=== PATIENT | female | born 1980 ===

== ENCOUNTER → 2019-07-09 | Day surgery (SDC) | payer OTHER ==
[~2019-07-09] MED LIST: ESMOLOL HCL 100MG/10ML 10 MG/ML VIAL ONE; FENTANYL CITRATE/PF 100MCG/2 ML INJ ONE; LIDOCAINE HCL 2% LOCAL INJ 5 ML SDV VIAL INJ ONE; MIDAZOLAM HCL 2 MG/2 ML VIAL ONE; PANTOPRAZOLE 40 MG 10ML VIAL ONE; PROPOFOL IV EMULSION 10 MG/ML 50 ML VIAL ONE
--- OUTSIDE RECORDS SUMMARY | 2019-07-09 12:13 | XMS REPORT | CCD ---
Author Author Auto Generated Organization [facility] Address Unknown Phone Unavailable Care Team Providers Care Reception Specialist Name Role Phone Nathalia Elias CP Allergies, Adverse Reactions, Alerts Substance Reaction Status NKDA Active Problem List Condition Effective Dates Status Vaginal delivery Active Medications Medication Instructions Start Date End Date Status Tylenol 1,000 mg, PO, PRN, Substitution 02/05/2012 02/08/2012 Discontinued Allowed, CAP labetalol 200 mg, 1 tab, Route: PO, Drug 02/07/2012 02/08/2012 Discontinued form: TAB, Q12H, Start date: 02/07/12 9:00:00, Stop date: 03/07/12 21:00:00 Lasix 20 mg oral 20 mg, 1 tab, PO, Daily, 3 tab, 02/08/2012 Ordered tablet Substitution Allowed labetalol 20 mg, 4 mL, Route: IVP, Drug form: 02/06/2012 02/08/2012 Discontinued INJ, Q2H, PRN Other -See Comment, Start date: 02/06/12 7:24:00, Duration: 30 day, Stop date: 03/07/12 7:23:00 mineral oil 30 mL, Route: PERCUT, Drug Form: 02/06/2012 02/06/2012 Completed LIQ, ONCE, Start date: 02/06/12 9:06:00, Stop date: 02/06/12 9:06:00 labetalol 200 mg 400 mg, 2 tab, PO, Q12H, 28 tab, 02/08/2012 02/08/2012 Discontinued oral tablet Substitution Allowed, TAB ibuprofen 800 mg 800 mg, 1 tab, PO, Q8H, PRN, 30 02/08/2012 Ordered oral tablet tab, Pain, Substitution Allowed, TAB labetalol 200 mg 200 mg, 1 tab, PO, Q12H, 28 tab, 02/08/2012 Ordered oral tablet Substitution Allowed, TAB Lactated Ringers 1,000 mL, Rate: Titrate, Route: IV, 02/05/2012 02/07/2012 Discontinued (titrate) IV 1,000 Total Volume: 1,000, Duration: 30 mL day, Stop date: 03/06/12 17:13:00, Replace Every: 24 hr magnesium sulfate 4 gm, 100 mL, Route: IVPB, Drug 02/05/2012 02/05/2012 Completed form: INJ, ONCE, Loading dose; Dilute in 100 ml; Infuse over 30 minutes @ 200 ml/hr (STOP: Above a 6 gm loading dose, call Pharmacist or Physician), Start date: 02/05/12 17:13:00, Duration: 1 doses or times, Stop date... magnesium sulfate 20 500 mL, Rate: 50 ml/hr, Infuse 02/05/2012 02/07/2012 Discontinued gm/500 ml solution over: 10 hr, Route: IV, Dosing 20 gm Weight 65.9 kg, Total Volume: 500, Start date: 02/05/12 17:13:00, Stop date: 03/06/12 17:12:00 calcium gluconate 1 gm, Route: IVPB, ONCALL, (Maximum 02/05/2012 02/07/2012 Discontinued Dose=3 gm); For Hypermagnesemia, Start date: 02/05/12 18:00:00, Duration: 30 day, Stop date: 03/06/12 17:59:00 ondansetron 4 mg, 2 mL, Route: IVP, Drug form: 02/06/2012 02/08/2012 Discontinued INJ, Q8H, PRN Nausea & Vomiting, Start date: 02/06/12 12:57:00, Duration: 30 day, Stop date: 03/07/12 12:56:00 zolpidem 5 mg, 1 tab, Route: PO, Drug form: 02/06/2012 02/08/2012 Discontinued TAB, Bedtime, PRN Sleep, Start date: 02/06/12 12:57:00, Duration: 30 day, Stop date: 03/07/12 12:56:00 M-M-R II 0.5 ml, Route: SUB-Q, Drug Form: 02/06/2012 02/08/2012 Completed PDR/INJ, ONCALL, Start date: 02/06/12 13:00:00, Duration: 1 doses or times methylergonovine 0.2 mg, 1 mL, Route: IM, Drug form: 02/06/2012 02/08/2012 Discontinued INJ, PRN, PRN Other -See Comment, Start date: 02/06/12 12:57:00, Duration: 30 day, Stop date: 03/07/12 12:56:00 Dermoplast 20% 1 spray, Route: TOP, PRN, Drug 02/06/2012 02/08/2012 Discontinued topical spray form: SPRY PRN Irritation, Start date: 02/06/12 12:57:00, Duration: 30 day, Stop date: 03/07/12 12:56:00 lanolin topical 1 appl, Route: TOP, PRN, Drug form: 02/06/2012 02/08/2012 Discontinued CRM PRN Other -See Comment, Start date: 02/06/12 12:57:00, Duration: 30 day, Stop date: 03/07/12 12:56:00 docusate 100 mg, 1 cap, Route: PO, Drug 02/06/2012 02/08/2012 Discontinued form: CAP, BID, PRN Constipation, Start date: 02/06/12 12:57:00, Duration: 30 day, Stop date: 03/07/12 12:56:00 ibuprofen 800 mg, 1 tab, Route: PO, Drug 02/06/2012 02/08/2012 Discontinued form: TAB, Q8H, PRN Pain, Start date: 02/06/12 12:57:00, Duration: 30 day, Stop date: 03/07/12 12:56:00 Lactated Ringers 20 unit, 1,000 mL, Rate: 125 ml/hr, 02/06/2012 02/08/2012 Completed 1000ml+Oxytocin 20 Infuse over: 8 hr, Route: IV, Total units IV (Premix) 20 Volume: 1,000, Start date: 02/06/12 unit 12:57:00, Duration: 2 day, Stop date: 02/08/12 12:56:00, Replace Every: 8 hr, Replace every 24 hrs; PRN for moderate to severe post blee... Lactated Ringers 20 unit, 1,000 mL, Rate: 125 ml/hr, 02/06/2012 02/07/2012 Completed 1000ml+Pitocin 20 Infuse over: 8 hr, Route: IV, Total units IV (Premix) 20 Volume: 1,000 mL, Start date: unit 02/06/12 12:57:00, Duration: 2 doses or times, Stop date: 02/07/12 4:56:00, Replace Every: 8 hr acetaminophen-hydroc 2 tab, Route: PO, Drug Form: TAB, 02/06/2012 02/08/2012 Discontinued odone 325 mg-5 mg Q4H, PRN Pain Score 4-6, Start oral tablet date: 02/06/12 12:57:00, Duration: 30 day, Stop date: 03/07/12 12:56:00 acetaminophen-hydroc 1 tab, Route: PO, Drug Form: TAB, 02/06/2012 02/08/2012 Discontinued odone 325 mg-5 mg Q4H, PRN Pain Score 1-3, Start oral tablet date: 02/06/12 12:57:00, Duration: 30 day, Stop date: 03/07/12 12:56:00 acetaminophen 650 mg, 2 tab, Route: PO, Drug 02/06/2012 02/08/2012 Discontinued form: TAB, Q4H, PRN Headache, Start date: 02/06/12 12:57:00, Duration: 30 day, Stop date: 03/07/12 12:56:00 Lactated Ringers IV 1,000 mL, Rate: 100 ml/hr, Infuse 02/06/2012 02/08/2012 Discontinued 1,000 mL over: 10 hr, Route: IV, Dosing Weight 65.9 kg, Total Volume: 1,000, Start date: 02/06/12 12:57:00, Duration: 30 day, Stop date: 03/07/12 12:56:00, PRN to maintain IV access 1 tab, Route: PO, Drug Form: TAB, 02/07/2012 02/08/2012 Discontinued Multivitamins oral Daily, Start date: 02/07/12 tablet 9:00:00, Duration: 30 day, Stop date: 03/07/12 9:00:00 penicillin G 2,500,000 unit, 50 mL, Route: IVPB, 02/05/2012 02/06/2012 Discontinued potassium Drug form: INJ, [id number], Start date: 02/05/12 18:00:00 penicillin G 5,000,000 unit, 100 mL, Route: 02/05/2012 02/06/2012 Completed potassium 5,000,000 IVPB, Drug form: PDR/INJ, ONCALL, units injection Start date: 02/05/12 18:00:00 Lactated Ringers 20 unit, 1,000 mL, Rate: Titrate, 02/05/2012 02/06/2012 Discontinued 1000ml+Pitocin 20 Route: IV, Total Volume: 1,000 mL, units IV (Premix Start date: 02/05/12 17:12:00, Titrate) 20 unit 20 Duration: 2 day, Stop date: unit 02/07/12 17:11:00, Replace Every: 24 hr misoprostol 1,000 microgram, 5 tab, Route: MD, 02/05/2012 02/06/2012 Discontinued Drug form: TAB, ONCALL, Start date: 02/05/12 18:00:00, Duration: 1 doses or times lidocaine 1% 20 ml, Route: PERCUT, Drug Form: 02/05/2012 02/06/2012 Discontinued INJ, PRN, PRN Other -See Comment, Start date: 02/05/12 17:12:00, Duration: 1 doses or times, Stop date: Limited # of times citric acid-sodium 30 ml, Route: PO, Drug Form: SOLN, 02/05/2012 02/06/2012 Discontinued citrate ONCALL, Start date: 02/05/12 18:00:00, Duration: 30 day, Stop date: 03/06/12 17:59:00 metoclopramide 10 mg, 2 mL, Route: IVP, Drug form: 02/05/2012 02/06/2012 Discontinued INJ, ONCALL, Start date: 02/05/12 18:00:00, Duration: 30 day, Stop date: 03/06/12 17:59:00 methylergonovine 0.2 mg, 1 mL, Route: IM, Drug form: 02/05/2012 02/06/2012 Discontinued INJ, ONCALL, Start date: 02/05/12 18:00:00, Duration: 30 day, Stop date: 03/06/12 17:59:00 terbutaline 0.25 mg, 0.25 mL, Route: SUB-Q, 02/05/2012 02/06/2012 Discontinued Drug form: INJ, PRN, PRN Other -See Comment, Start date: 02/05/12 17:12:00, Duration: 1 doses or times, Stop date: Limited # of times oxytocin-add to 20 unit, 2 mL, Route: INJ, Drug 02/05/2012 02/06/2012 Discontinued current IV form: SOLN ONCALL, Start date: 02/05/12 18:00:00, Duration: 2 day, Stop date: 02/07/12 17:59:00 famotidine 20 mg, 2 mL, Route: IVP, Drug form: 02/05/2012 02/06/2012 Discontinued INJ, ONCALL, Start date: 02/05/12 18:00:00, Duration: 30 day, Stop date: 03/06/12 17:59:00 ondansetron 4 mg, 2 mL, Route: IVP, Drug form: 02/05/2012 02/06/2012 Discontinued INJ, Q8H, PRN Nausea & Vomiting, Start date: 02/05/12 17:12:00, Duration: 30 day, Stop date: 03/06/12 17:11:00 acetaminophen-hydroc 1 tab, Route: PO, Drug Form: TAB, 02/05/2012 02/06/2012 Discontinued odone 325 mg-5 mg Q4H, PRN Pain Score 1-3, Start oral tablet date: 02/05/12 17:12:00, Duration: 30 day, Stop date: 03/06/12 17:11:00 butorphanol 1 mg, 0.5 mL, Route: IVP, Drug 02/05/2012 02/06/2012 Discontinued form: INJ, Q2H, PRN Pain Score 1-5, Start date: 02/05/12 17:12:00, Duration: 30 day, Stop date: 03/06/12 17:11:00 butorphanol 2 mg, 1 mL, Route: IVP, Drug form: 02/05/2012 02/06/2012 Discontinued INJ, Q2H, PRN Pain Score 6-10, Start date: 02/05/12 17:12:00, Duration: 30 day, Stop date: 03/06/12 17:11:00 acetaminophen-hydroc 2 tab, Route: PO, Drug Form: TAB, 02/05/2012 02/06/2012 Discontinued odone 325 mg-5 mg Q4H, PRN Pain Score 4-6, Start oral tablet date: 02/05/12 17:12:00, Duration: 30 day, Stop date: 03/06/12 17:11:00 ibuprofen 800 mg, 1 tab, Route: PO, Drug 02/05/2012 02/06/2012 Discontinued form: TAB, Q8H, PRN Other -See Comment, Start date: 02/05/12 17:12:00, Duration: 30 day, Stop date: 03/06/12 17:11:00 carboprost 250 microgram, 1 mL, Route: IM, 02/05/2012 02/06/2012 Discontinued Drug form: INJ, ONCALL, Start date: 02/05/12 18:00:00, Duration: 30 day, Stop date: 03/06/12 17:59:00 Lactated Ringers 20 unit, 1,000 mL, Rate: 125 ml/hr, 02/05/2012 02/06/2012 Discontinued 1000ml+Pitocin 20 Infuse over: 8 hr, Route: IV, Total units IV (Premix) 20 Volume: 1,000 mL, Start date: unit 02/05/12 17:12:00, Duration: 2 day, Stop date: 02/07/12 17:11:00, Replace Every: 8 hr Lactated Ringers 1,000 mL, Rate: 100 ml/hr, Infuse 02/05/2012 02/06/2012 Discontinued Injection IV 1,000 over: 10 hr, Route: IV, Dosing mL Weight 65 kg, Total Volume: 1,000, Bolus for regional anesthesia per unit protocol, Start date: 02/05/12 17:12:00, Duration: 30 day, Stop date: 03/06/12 17:11:00 Lactated Ringers IV 1,000 mL, Rate: 125 ml/hr, Infuse 02/05/2012 02/06/2012 Discontinued 1,000 mL over: 8 hr, Route: IV, Dosing Weight 65.9 kg, Total Volume: 1,000, Start date: 02/05/12 17:12:00, Duration: 30 day, Stop date: 03/06/12 17:11:00 Immunizations Vaccine Date Status measles/mumps/rubella virus vaccine 02/08/2012 Not Done Vital Signs Most recent to oldest [Reference Range]: 1 2 3 Height 157.48 cm (02/05/2012 17:00:00) Temperature Oral [96.4-99.1 DegF] 98.2 DegF (02/08/2012 12:00:00) 98.3 DegF (02/08/2012 08:00:00) 98.1 DegF (02/08/2012 04:00:00) Systolic Blood Pressure [90-140 mmHg] 123 mmHg (02/08/2012 12:00:00) 139 mmHg (02/08/2012 08:00:00) 159 mmHg *HI* (02/08/2012 05:00:00) Diastolic Blood Pressure [60-90 mmHg] 82 mmHg (02/08/2012 12:00:00) 77 mmHg (02/08/2012 08:00:00) 89 mmHg (02/08/2012 05:00:00) Respiratory Rate [14-20 BRMIN] 18 BRMIN (02/08/2012 12:00:00) 18 BRMIN (02/08/2012 08:00:00) 18 BRMIN (02/08/2012 05:00:00) Peripheral Pulse Rate [60-100 bpm] 92 bpm (02/08/2012 12:00:00) 91 bpm (02/08/2012 08:00:00) 77 bpm (02/08/2012 05:00:00) Weight 65.909 kg (02/05/2012 17:00:00) Results URINALYSIS Most recent to oldest [Reference Range]: 1 2 UA Turbidity [Clear] Clear (02/05/2012 19:20:00) UA Color [Yellow] Yellow *NA* (02/05/2012 19:20:00) UA pH [5.0-8.0] 6.0 (02/05/2012 19:20:00) UA Spec Grav [<=1.030] >=1.030 *ABN* (02/05/2012 19:20:00) UA Glucose [Negative] Negative (02/05/2012 19:20:00) UA Blood [Negative] Small *ABN* (02/05/2012 19:20:00) UA Ketones [Negative] Negative *NA* (02/05/2012 19:20:00) UA Protein [Negative mg/dL] >=300 mg/dL *ABN* (02/05/2012 19:20:00) UA Urobilinogen [0.1-1.0 EU/dL] 0.2 EU/dL (02/05/2012 19:20:00) UA Bili [Negative] Negative *NA* (02/05/2012 19:20:00) UA Leuk Est [Negative] Negative (02/05/2012 19:20:00) UA Nitrite [Negative] Negative (02/05/2012 19:20:00) UA WBC [None Seen /HPF] 0-2 /HPF (02/05/2012 19:20:00) UA RBC [0-2 /HPF] 3-5 /HPF *ABN* (02/05/2012 19:20:00) UA Bacteria [None Seen /HPF] Few /HPF (02/05/2012 19:20:00) UA Sq Epi [Few /LPF] Many /LPF *ABN* (02/05/2012 19:20:00) UA Hyal Cast [0-2] 3-5 (02/05/2012 19:20:00) UA Fine Gran [None Seen /LPF] 0-2 /LPF *ABN* (02/05/2012 19:20:00) UA Mucus [None Seen /LPF] Rare /LPF (02/05/2012 19:20:00) Micro? Performed (02/05/2012 19:20:00) BLOOD BANK RESULTS Most recent to oldest [Reference Range]: 1 2 ABO/Rh O POS *Unknown* (02/05/2012 18:00:00) Antibody Scrn Negative (02/05/2012 18:00:00) CHEMISTRY Most recent to oldest [Reference Range]: 1 2 Sodium Lvl [135-145 mEq/L] 139 mEq/L (02/05/2012 18:00:00) Potassium Lvl [3.5-5.1 mEq/L] 3.4 mEq/L *LOW* (02/05/2012 18:00:00) Chloride Lvl [95-109 mEq/L] 105 mEq/L (02/05/2012 18:00:00) CO2 [24-32 mEq/L] 25 mEq/L (02/05/2012 18:00:00) AGAP [10.0-20.0 mEq/L] 12.4 mEq/L (02/05/2012 18:00:00) Creatinine Lvl [0.5-1.4 mg/dL] 0.9 mg/dL (02/05/2012 18:00:00) BUN [7-22 mg/dL] 10 mg/dL (02/05/2012 18:00:00) B/C Ratio [6-25] 11 (02/05/2012 18:00:00) Glucose Lvl [70-99 mg/dL] 107 mg/dL 1 *HI* (02/05/2012 18:00:00) Uric Acid [2.5-7.0 mg/dL] 4.9 mg/dL (02/05/2012 18:00:00) Total Protein [6.4-8.4 g/dL] 6.3 g/dL *LOW* (02/05/2012 18:00:00) Albumin Lvl [3.5-5.0 g/dL] 2.8 g/dL *LOW* (02/05/2012 18:00:00) Globulin [2.0-4.0 g/dL] 3.5 g/dL (02/05/2012 18:00:00) A/G Ratio [0.7-1.6] 0.8 (02/05/2012 18:00:00) Calcium Lvl [8.5-10.5 mg/dL] 8.1 mg/dL *LOW* (02/05/2012 18:00:00) Magnesium Lvl [1.8-2.4 mg/dL] 1.6 mg/dL *LOW* (02/05/2012 18:00:00) Mg Therap (LD) [4.5-7.5 mg/dL] 5.8 mg/dL (02/06/2012 10:17:00) ALT [0-65 U/L] 12 U/L (02/05/2012 18:00:00) AST [0-37 U/L] 13 U/L (02/05/2012 18:00:00) Alk Phos [39-136 U/L] 169 U/L *HI* (02/05/2012 18:00:00) Bili Total [0.2-1.3 mg/dL] 0.3 mg/dL (02/05/2012 18:00:00) Temp Cord Art 37.0 DegC *NA* (02/06/2012 11:47:00) pH Cord Art [7.11-7.36] 7.27 (02/06/2012 11:47:00) PCO2 Cord Art [37-77 mmHg] 57 mmHg (02/06/2012 11:47:00) PO2 Cord Art [3-33 mmHg] 22 mmHg (02/06/2012 11:47:00) HCO3 Cord Art 20 mMol/L *NA* (02/06/2012 11:47:00) BE Cord Art -1 mMol/L *NA* (02/06/2012 11:47:00) Temp Cord Wyatt 37.0 DegC *NA* (02/06/2012 11:47:00) pH Cord Wyatt [7.16-7.41] 7.33 (02/06/2012 11:47:00) PCO2 Cord Wyatt [31-65 mmHg] 46 mmHg (02/06/2012 11:47:00) PO2 Cord Wyatt [13-39 mmHg] 29 mmHg (02/06/2012 11:47:00) HCO3 Cord Wyatt 21 mMol/L *NA* (02/06/2012 11:47:00) BE Cord Wyatt -2 mMol/L *NA* (02/06/2012 11:47:00) 1Interpretive Data: Adult reference range values reflect the clinical guidelinesof the [place] [employer]. HEMATOLOGY Most recent to oldest [Reference Range]: 1 2 WBC [3.7-10.4 K/CMM] 6.2 K/CMM (02/05/2012 18:00:00) RBC [4.20-5.40 M/CMM] 3.75 M/CMM *LOW* (02/05/2012 18:00:00) Hgb [12.0-16.0 g/dL] 9.4 g/dL *LOW* (02/07/2012 04:55:00) 9.7 g/dL *LOW* (02/05/2012 18:00:00) Hct [36.0-48.0 %] 29.3 % *LOW* (02/07/2012 04:55:00) 30.2 % *LOW* (02/05/2012 18:00:00) MCV [81.0-99.0 fL] 80.3 fL *LOW* (02/05/2012 18:00:00) MCH [27.0-31.0 pg] 25.8 pg *LOW* (02/05/2012 18:00:00) MCHC [32.0-36.0 g/dL] 32.1 g/dL (02/05/2012 18:00:00) RDW [11.5-14.5 %] 15.6 % *HI* (02/05/2012 18:00:00) Platelet [133-450 K/CMM] 240 K/CMM (02/05/2012 18:00:00) MPV [7.4-10.4 fL] 8.2 fL (02/05/2012 18:00:00) Segs [45.0-75.0 %] 69.5 % (02/05/2012 18:00:00) Lymphocytes [20.0-40.0 %] 21.2 % (02/05/2012 18:00:00) Monocytes [2.0-12.0 %] 7.5 % (02/05/2012 18:00:00) Eosinophils [0.0-4.0 %] 1.2 % (02/05/2012 18:00:00) Basophils [0.0-1.0 %] 0.6 % (02/05/2012 18:00:00) Segs-Bands # [1.5-8.1 K/CMM] 4.3 K/CMM (02/05/2012 18:00:00) Lymphocytes # [1.0-5.5 K/CMM] 1.3 K/CMM (02/05/2012 18:00:00) Monocytes # [0.0-0.8 K/CMM] 0.5 K/CMM (02/05/2012 18:00:00) Eosinophils # [0.0-0.5 K/CMM] 0.1 K/CMM (02/05/2012 18:00:00) Basophils # [0.0-0.2 K/CMM] 0.0 K/CMM (02/05/2012 18:00:00) IMMUNOLOGY Most recent to oldest [Reference Range]: 1 2 RPR [Non Reactive] Non Reactive (02/05/2012 18:00:00) Hep Bs Ag [Negative] Negative *NA* (02/05/2012 18:00:00)
--- OUTSIDE RECORDS SUMMARY | 2019-07-09 12:13 | XMS REPORT | Continuity of Care Document ---
Author Author [facility] Organization [facility] Address Unknown Phone Unavailable Care Team Providers Care Quality Improvement Manager Name Role Phone [facility] Unavailable Unavailable Problems Problem Status Onset Date Classification Date Reported Comments Source PRE-ECAMPLSIA Active 02/05/2012 [facility] Chronic cough (finding) Active Problem 02/01/2019 [facility] Fatigue (finding) Active Problem 02/01/2019 [facility] History of - asthma (context-dependent category) Active Problem 02/01/2019 [facility] Malignant tumor of cervix (disorder) Active Problem 02/01/2019 [facility] Vaginal delivery (finding) Active Problem 02/01/2019 [facility] Vaginal delivery Active Problem 02/10/2012 [facility] NORMAL DELIVERY Active [facility] Medications Medication Details Route Status Patient Instructions Ordering Provider Order Date Source montelukast 10 mg oral tablet 10 mg=1 tab, PO, Bedtime, # 30 tab, 1 Refill(s), Pharmacy: [facility]/pharmacy #[id number] Active 12/26/2018 [facility] 200 ACTUAT Albuterol 0.09 MG/ACTUAT Metered Dose Inhaler [ProAir HFA] 2 puff, INHALER, Q4H, PRN wheezing, coughing, or shortness of breath, # 1 ea, 1 Refill(s), Pharmacy: [facility]/pharmacy #[id number], JEREMY TO DISPENSE GENERIC ALBUTEROL OR ALTERNATIVE Active 12/26/2018 [facility] Lasix 20 mg oral tablet 20 mg, 1 tab, PO, Daily, 3 tab, Substitution Allowed PO Active [facility] 02/08/2012 [facility] labetalol 200 mg oral tablet 200 mg, 1 tab, PO, Q12H, 28 tab, Substitution Allowed, TAB PO Active [facility] 02/08/2012 [facility] labetalol 200 mg oral tablet 400 mg, 2 tab, PO, Q12H, 28 tab, Substitution Allowed, TAB PO No Longer Active [facility] 02/08/2012 [facility] ibuprofen 800 mg oral tablet 800 mg, 1 tab, PO, Q8H, PRN, 30 tab, Pain, Substitution Allowed, TAB PO Active [facility] 02/08/2012 [facility] labetalol 200 mg, 1 tab, Route: PO, Drug form: TAB, Q12H, Start date: 02/07/12 9:00:00, Stop date: 03/07/12 21:00:00 PO No Longer Active [facility] 02/07/2012 [facility] Multivitamins oral tablet 1 tab, Route: PO, Drug Form: TAB, Daily, Start date: 02/07/12 9:00:00, Duration: 30 day, Stop date: 03/07/12 9:00:00 PO No Longer Active [facility] 02/07/2012 [facility] M-M-R II 0.5 ml, Route: SUB-Q, Drug Form: PDR/INJ, ONCALL, Start date: 02/06/12 13:00:00, Duration: 1 doses or times SUB-Q No Longer Active [facility] 02/06/2012 [facility] ondansetron 4 mg, 2 mL, Route: IVP, Drug form: INJ, Q8H, PRN Nausea & Vomiting, Start date: 02/06/12 12:57:00, Duration: 30 day, Stop date: 03/07/12 12:56:00 IVP No Longer Active [facility] 02/06/2012 [facility] zolpidem 5 mg, 1 tab, Route: PO, Drug form: TAB, Bedtime, PRN Sleep, Start date: 02/06/12 12:57:00, Duration: 30 day, Stop date: 03/07/12 12:56:00 PO No Longer Active [facility] 02/06/2012 [facility] methylergonovine 0.2 mg, 1 mL, Route: IM, Drug form: INJ, PRN, PRN Other -See Comment, Start date: 02/06/12 12:57:00, Duration: 30 day, Stop date: 03/07/12 12:56:00 IM No Longer Active [facility] 02/06/2012 [facility] Dermoplast 20% topical spray 1 spray, Route: TOP, PRN, Drug form: SPRY PRN Irritation, Start date: 02/06/12 12:57:00, Duration: 30 day, Stop date: 03/07/12 12:56:00 TOP No Longer Active [facility] 02/06/2012 [facility] lanolin topical 1 appl, Route: TOP, PRN, Drug form: CRM PRN Other -See Comment, Start date: 02/06/12 12:57:00, Duration: 30 day, Stop date: 03/07/12 12:56:00 TOP No Longer Active [facility] 02/06/2012 [facility] docusate 100 mg, 1 cap, Route: PO, Drug form: CAP, BID, PRN Constipation, Start date: 02/06/12 12:57:00, Duration: 30 day, Stop date: 03/07/12 12:56:00 PO No Longer Active [facility] 02/06/2012 [facility] ibuprofen 800 mg, 1 tab, Route: PO, Drug form: TAB, Q8H, PRN Pain, Start date: 02/06/12 12:57:00, Duration: 30 day, Stop date: 03/07/12 12:56:00 PO No Longer Active [facility] 02/06/2012 [facility] Lactated Ringers 1000ml+Oxytocin 20 units IV (Premix) 20 unit 20 unit, 1,000 mL, Rate: 125 ml/hr, Infuse over: 8 hr, Route: IV, Total Volume: 1,000, Start date: 02/06/12 12:57:00, Duration: 2 day, Stop date: 02/08/12 12:56:00, Replace Every: 8 hr, Replace every 24 hrs; PRN for moderate to severe post blee... IV No Longer Active [facility] 02/06/2012 [facility] Lactated Ringers 1000ml+Pitocin 20 units IV (Premix) 20 unit 20 unit, 1,000 mL, Rate: 125 ml/hr, Infuse over: 8 hr, Route: IV, Total Volume: 1,000 mL, Start date: 02/06/12 12:57:00, Duration: 2 doses or times, Stop date: 02/07/12 4:56:00, Replace Every: 8 hr IV No Longer Active [facility] 02/06/2012 [facility] acetaminophen-hydrocodone 325 mg-5 mg oral tablet 2 tab, Route: PO, Drug Form: TAB, Q4H, PRN Pain Score 4-6, Start date: 02/06/12 12:57:00, Duration: 30 day, Stop date: 03/07/12 12:56:00 PO No Longer Active [facility] 02/06/2012 [facility] acetaminophen 650 mg, 2 tab, Route: PO, Drug form: TAB, Q4H, PRN Headache, Start date: 02/06/12 12:57:00, Duration: 30 day, Stop date: 03/07/12 12:56:00 PO No Longer Active [facility] 02/06/2012 [facility] Lactated Ringers IV 1,000 mL 1,000 mL, Rate: 100 ml/hr, Infuse over: 10 hr, Route: IV, Dosing Weight 65.9 kg, Total Volume: 1,000, Start date: 02/06/12 12:57:00, Duration: 30 day, Stop date: 03/07/12 12:56:00, PRN to maintain IV access IV No Longer Active [facility] 02/06/2012 [facility] mineral oil 30 mL, Route: PERCUT, Drug Form: LIQ, ONCE, Start date: 02/06/12 9:06:00, Stop date: 02/06/12 9:06:00 PERCUT No Longer Active [facility] 02/06/2012 [facility] labetalol 20 mg, 4 mL, Route: IVP, Drug form: INJ, Q2H, PRN Other -See Comment, Start date: 02/06/12 7:24:00, Duration: 30 day, Stop date: 03/07/12 7:23:00 IVP No Longer Active [facility] 02/06/2012 [facility] calcium gluconate 1 gm, Route: IVPB, ONCALL, (Maximum Dose=3 gm); For Hypermagnesemia, Start date: 02/05/12 18:00:00, Duration: 30 day, Stop date: 03/06/12 17:59:00 IVPB No Longer Active [facility] 02/05/2012 [facility] penicillin G potassium 2,500,000 unit, 50 mL, Route: IVPB, Drug form: INJ, ABXQ4H, Start date: 02/05/12 18:00:00 IVPB No Longer Active [facility] 02/05/2012 [facility] penicillin G potassium 5,000,000 units injection 5,000,000 unit, 100 mL, Route: IVPB, Drug form: PDR/INJ, ONCALL, Start date: 02/05/12 18:00:00 IVPB No Longer Active [facility] 02/05/2012 [facility] misoprostol 1,000 microgram, 5 tab, Route: LA, Drug form: TAB, ONCALL, Start date: 02/05/12 18:00:00, Duration: 1 doses or times LA No Longer Active [facility] 02/05/2012 [facility] citric acid-sodium citrate 30 ml, Route: PO, Drug Form: SOLN, ONCALL, Start date: 02/05/12 18:00:00, Duration: 30 day, Stop date: 03/06/12 17:59:00 PO No Longer Active [facility] 02/05/2012 [facility] metoclopramide 10 mg, 2 mL, Route: IVP, Drug form: INJ, ONCALL, Start date: 02/05/12 18:00:00, Duration: 30 day, Stop date: 03/06/12 17:59:00 IVP No Longer Active [facility] 02/05/2012 [facility] methylergonovine 0.2 mg, 1 mL, Route: IM, Drug form: INJ, ONCALL, Start date: 02/05/12 18:00:00, Duration: 30 day, Stop date: 03/06/12 17:59:00 IM No Longer Active [facility] 02/05/2012 [facility] oxytocin-add to current IV 20 unit, 2 mL, Route: INJ, Drug form: SOLN, ONCALL, Start date: 02/05/12 18:00:00, Duration: 2 day, Stop date: 02/07/12 17:59:00 INJ No Longer Active [facility] 02/05/2012 [facility] famotidine 20 mg, 2 mL, Route: IVP, Drug form: INJ, ONCALL, Start date: 02/05/12 18:00:00, Duration: 30 day, Stop date: 03/06/12 17:59:00 IVP No Longer Active [facility] 02/05/2012 [facility] carboprost 250 microgram, 1 mL, Route: IM, Drug form: INJ, ONCALL, Start date: 02/05/12 18:00:00, Duration: 30 day, Stop date: 03/06/12 17:59:00 IM No Longer Active [facility] 02/05/2012 [facility] Tylenol 1,000 mg, PO, PRN, Substitution Allowed, CAP PO No Longer Active 02/05/2012 [facility] Lactated Ringers (titrate) IV 1,000 mL 1,000 mL, Rate: Titrate, Route: IV, Total Volume: 1,000, Duration: 30 day, Stop date: 03/06/12 17:13:00, Replace Every: 24 hr IV No Longer Active [facility] 02/05/2012 [facility] magnesium sulfate 4 gm, 100 mL, Route: IVPB, Drug form: INJ, ONCE, Loading dose; Dilute in 100 ml; Infuse over 30 minutes @ 200 ml/hr (STOP: Above a 6 gm loading dose, call Pharmacist or Physician), Start date: 02/05/12 17:13:00, Duration: 1 doses or times, Stop date... IVPB No Longer Active [facility] 02/05/2012 [facility] magnesium sulfate 20 gm/500 ml solution 20 gm 500 mL, Rate: 50 ml/hr, Infuse over: 10 hr, Route: IV, Dosing Weight 65.9 kg, Total Volume: 500, Start date: 02/05/12 17:13:00, Stop date: 03/06/12 17:12:00 IV No Longer Active [facility] 02/05/2012 [facility] Lactated Ringers 1000ml+Pitocin 20 units IV (Premix Titrate) 20 unit 20 unit 20 unit, 1,000 mL, Rate: Titrate, Route: IV, Total Volume: 1,000 mL, Start date: 02/05/12 17:12:00, Duration: 2 day, Stop date: 02/07/12 17:11:00, Replace Every: 24 hr IV No Longer Active [facility] 02/05/2012 [facility] lidocaine 1% 20 ml, Route: PERCUT, Drug Form: INJ, PRN, PRN Other -See Comment, Start date: 02/05/12 17:12:00, Duration: 1 doses or times, Stop date: Limited # of times PERCUT No Longer Active [facility] 02/05/2012 [facility] terbutaline 0.25 mg, 0.25 mL, Route: SUB-Q, Drug form: INJ, PRN, PRN Other -See Comment, Start date: 02/05/12 17:12:00, Duration: 1 doses or times, Stop date: Limited # of times SUB-Q No Longer Active [facility] 02/05/2012 [facility] ondansetron 4 mg, 2 mL, Route: IVP, Drug form: INJ, Q8H, PRN Nausea & Vomiting, Start date: 02/05/12 17:12:00, Duration: 30 day, Stop date: 03/06/12 17:11:00 IVP No Longer Active [facility] 02/05/2012 [facility] acetaminophen-hydrocodone 325 mg-5 mg oral tablet 1 tab, Route: PO, Drug Form: TAB, Q4H, PRN Pain Score 1-3, Start date: 02/05/12 17:12:00, Duration: 30 day, Stop date: 03/06/12 17:11:00 PO No Longer Active [facility] 02/05/2012 [facility] butorphanol 1 mg, 0.5 mL, Route: IVP, Drug form: INJ, Q2H, PRN Pain Score 1-5, Start date: 02/05/12 17:12:00, Duration: 30 day, Stop date: 03/06/12 17:11:00 IVP No Longer Active [facility] 02/05/2012 [facility] ibuprofen 800 mg, 1 tab, Route: PO, Drug form: TAB, Q8H, PRN Other -See Comment, Start date: 02/05/12 17:12:00, Duration: 30 day, Stop date: 03/06/12 17:11:00 PO No Longer Active [facility] 02/05/2012 [facility] Lactated Ringers 1000ml+Pitocin 20 units IV (Premix) 20 unit 20 unit, 1,000 mL, Rate: 125 ml/hr, Infuse over: 8 hr, Route: IV, Total Volume: 1,000 mL, Start date: 02/05/12 17:12:00, Duration: 2 day, Stop date: 02/07/12 17:11:00, Replace Every: 8 hr IV No Longer Active [facility] 02/05/2012 [facility] Lactated Ringers Injection IV 1,000 mL 1,000 mL, Rate: 100 ml/hr, Infuse over: 10 hr, Route: IV, Dosing Weight 65 kg, Total Volume: 1,000, Bolus for regional anesthesia per unit protocol, Start date: 02/05/12 17:12:00, Duration: 30 day, Stop date: 03/06/12 17:11:00 IV No Longer Active [facility] 02/05/2012 [facility] Lactated Ringers IV 1,000 mL 1,000 mL, Rate: 125 ml/hr, Infuse over: 8 hr, Route: IV, Dosing Weight 65.9 kg, Total Volume: 1,000, Start date: 02/05/12 17:12:00, Duration: 30 day, Stop date: 03/06/12 17:11:00 IV No Longer Active [facility] 02/05/2012 [facility] Allergies, Adverse Reactions, Alerts No Known Medication Allergies Immunizations Immunization Date Given Site Status Last Updated Comments Source measles/mumps/rubella virus vaccine 02/08/2012 Not Given Du [facility] Results Order Name Results Value Reference Range Date Interpretation Comments Source HEMATOLOGY Hgb 9.4 12.0 - 16.0 02/07/2012 LOW [facility] HEMATOLOGY Hct 29.3 36.0 - 48.0 02/07/2012 LOW [facility] CHEMISTRY pH Cord Wyatt 7.33 7.16 - 7.41 02/06/2012 Normal [facility] CHEMISTRY PCO2 Cord Wyatt 46 31 - 65 02/06/2012 Normal [facility] CHEMISTRY PO2 Cord Wyatt 29 13 - 39 02/06/2012 Normal [facility] CHEMISTRY Temp Cord Wyatt 37.0 02/06/2012 NA [facility] CHEMISTRY HCO3 Cord Wyatt 21 02/06/2012 NA [facility] CHEMISTRY BE Cord Wyatt -2 02/06/2012 NA [facility] CHEMISTRY pH Cord Art 7.27 7.11 - 7.36 02/06/2012 Normal [facility] CHEMISTRY PCO2 Cord Art 57 37 - 77 02/06/2012 Normal [facility] CHEMISTRY Temp Cord Art 37.0 02/06/2012 [facility] CHEMISTRY PO2 Cord Art 22 3 - 33 02/06/2012 Normal [facility] CHEMISTRY HCO3 Cord Art 20 02/06/2012 NA [facility] CHEMISTRY BE Cord Art -1 02/06/2012 [facility] CHEMISTRY Mg Therap (LD) 5.8 4.5 - 7.5 02/06/2012 Normal [facility] URINALYSIS UA Fine Gran 0-2 /LPF *ABN* (02/05/2012 19:20:00) None Seen 02/06/2012 ABN [facility] URINALYSIS UA Hyal Cast 3-5 (02/05/2012 19:20:00) 0 - 2 02/06/2012 Normal [facility] URINALYSIS UA Mucus Rare /LPF (02/05/2012 19:20:00) None Seen 02/06/2012 Normal [facility] URINALYSIS UA Color Yellow *NA* (02/05/2012 19:20:00) Yellow 02/06/2012 NA [facility] URINALYSIS UA Nitrite Negative (02/05/2012 19:20:00) Negative 02/06/2012 Normal [facility] URINALYSIS UA Urobilinogen 0.2 0.1 - 1.0 02/06/2012 Normal [facility] URINALYSIS UA Bacteria Few /HPF (02/05/2012 19:20:00) None Seen 02/06/2012 Normal [facility] URINALYSIS UA RBC 3-5 /HPF *ABN* (02/05/2012 19:20:00) 0 - 2 02/06/2012 ABN [facility] URINALYSIS UA WBC 0-2 /HPF (02/05/2012 19:20:00) None Seen 02/06/2012 Normal [facility] URINALYSIS UA Protein >=300 mg/dL *ABN* (02/05/2012 19:20:00) Negative 02/06/2012 ABN [facility] URINALYSIS UA Turbidity Clear (02/05/2012 19:20:00) Clear 02/06/2012 Normal [facility] URINALYSIS UA Blood Small *ABN* (02/05/2012 19:20:00) Negative 02/06/2012 ABN [facility] URINALYSIS UA Bili Negative *NA* (02/05/2012 19:20:00) Negative 02/06/2012 NA [facility] URINALYSIS UA pH 6.0 5.0 - 8.0 02/06/2012 Normal [facility] URINALYSIS UA Spec Grav >=1.030 *ABN* (02/05/2012 19:20:00) <=1.030 02/06/2012 [facility] URINALYSIS UA Ketones Negative *NA* (02/05/2012 19:20:00) Negative 02/06/2012 NA [facility] URINALYSIS UA Glucose Negative (02/05/2012 19:20:00) Negative 02/06/2012 Normal [facility] URINALYSIS UA Sq Epi Many /LPF *ABN* (02/05/2012 19:20:00) Few 02/06/2012 [facility] URINALYSIS Micro? Performed (02/05/2012 19:20:00) 02/06/2012 Normal [facility] URINALYSIS UA Leuk Est Negative (02/05/2012 19:20:00) Negative 02/06/2012 Normal [facility] BLOOD BANK RESULTS Antibody Scrn Negative (02/05/2012 18:00:00) 02/05/2012 Normal [facility] BLOOD BANK RESULTS ABO/Rh O POS 02/05/2012 Unknown [facility] CHEMISTRY Magnesium Lvl 1.6 1.8 - 2.4 02/05/2012 LOW [facility] CHEMISTRY Chloride Lvl 105 95 - 109 02/05/2012 Normal [facility] CHEMISTRY CO2 25 24 - 32 02/05/2012 Normal [facility] CHEMISTRY Calcium Lvl 8.1 8.5 - 10.5 02/05/2012 LOW [facility] CHEMISTRY Potassium Lvl 3.4 3.5 - 5.1 02/05/2012 LOW [facility] CHEMISTRY Creatinine Lvl 0.9 0.5 - 1.4 02/05/2012 Normal [facility] CHEMISTRY Sodium Lvl 139 135 - 145 02/05/2012 Normal [facility] CHEMISTRY BUN 10 7 - 22 02/05/2012 Normal [facility] CHEMISTRY Glucose Lvl 107 70 - 99 02/05/2012 [facility] <sup>1</sup>Interpretive Data: Adult reference range values reflect the clinical guidelines of the [place] [employer]. [facility] CHEMISTRY AST 13 0 - 37 02/05/2012 Normal [facility] CHEMISTRY Albumin Lvl 2.8 3.5 - 5.0 02/05/2012 LOW [facility] CHEMISTRY ALT 12 0 - 65 02/05/2012 Normal [facility] CHEMISTRY Bili Total 0.3 0.2 - 1.3 02/05/2012 Normal [facility] CHEMISTRY Alk Phos 169 39 - 136 02/05/2012 HI [facility] CHEMISTRY Total Protein 6.3 6.4 - 8.4 02/05/2012 LOW [facility] CHEMISTRY A/G Ratio 0.8 0.7 - 1.6 02/05/2012 Normal [facility] CHEMISTRY AGAP 12.4 10.0 - 20.0 02/05/2012 Normal [facility] CHEMISTRY B/C Ratio 11 6 - 25 02/05/2012 Normal [facility] CHEMISTRY Globulin 3.5 2.0 - 4.0 02/05/2012 Normal [facility] CHEMISTRY Uric Acid 4.9 2.5 - 7.0 02/05/2012 Normal [facility] HEMATOLOGY Eosinophils 1.2 0.0 - 4.0 02/05/2012 Normal [facility] HEMATOLOGY Monocytes 7.5 2.0 - 12.0 02/05/2012 Normal [facility] HEMATOLOGY Basophils 0.6 0.0 - 1.0 02/05/2012 Normal [facility] HEMATOLOGY Basophils # 0.0 0.0 - 0.2 02/05/2012 Normal [facility] HEMATOLOGY Monocytes # 0.5 0.0 - 0.8 02/05/2012 Normal [facility] HEMATOLOGY Lymphocytes # 1.3 1.0 - 5.5 02/05/2012 Normal [facility] HEMATOLOGY Eosinophils # 0.1 0.0 - 0.5 02/05/2012 Normal [facility] HEMATOLOGY Segs-Bands # 4.3 1.5 - 8.1 02/05/2012 Normal [facility] HEMATOLOGY Lymphocytes 21.2 20.0 - 40.0 02/05/2012 Normal [facility] HEMATOLOGY Segs 69.5 45.0 - 75.0 02/05/2012 Normal [facility] HEMATOLOGY Platelet 240 133 - 450 02/05/2012 Normal [facility] HEMATOLOGY MPV 8.2 7.4 - 10.4 02/05/2012 Normal [facility] HEMATOLOGY RBC 3.75 4.20 - 5.40 02/05/2012 LOW [facility] HEMATOLOGY Hgb 9.7 12.0 - 16.0 02/05/2012 LOW [facility] HEMATOLOGY RDW 15.6 11.5 - 14.5 02/05/2012 HI [facility] HEMATOLOGY WBC 6.2 3.7 - 10.4 02/05/2012 Normal [facility] HEMATOLOGY Hct 30.2 36.0 - 48.0 02/05/2012 LOW [facility] HEMATOLOGY MCHC 32.1 32.0 - 36.0 02/05/2012 Normal [facility] HEMATOLOGY MCH 25.8 27.0 - 31.0 02/05/2012 LOW [facility] HEMATOLOGY MCV 80.3 81.0 - 99.0 02/05/2012 [facility] IMMUNOLOGY Hep Bs Ag Negative *NA* (02/05/2012 18:00:00) Negative 02/05/2012 NA [facility] IMMUNOLOGY RPR Non Reactive (02/05/2012 18:00:00) Non Reactive 02/05/2012 Normal [facility] Pathology Reports No Data Provided for This Section Diagnostic Reports No Data Provided for This Section Consultation Notes No Data Provided for This Section Discharge Summaries No Data Provided for This Section History and Physicals No Data Provided for This Section Vital Signs Vital Sign Value Date Comments Source Height 157.48 cm 12/26/2018 [facility] Heart Rate 87 12/26/2018 [facility] Respitory Rate 16 12/26/2018 [facility] Systolic (mm Hg) 125 12/26/2018 [facility] Diastolic (mm Hg) 85 12/26/2018 [facility] BMI Calculated 22.73 12/26/2018 [facility] Weight 56.364 12/26/2018 [facility] Heart Rate 92 02/08/2012 [facility] Rate 18 02/08/2012 [facility] Temperature Oral (F) 98.2 F 02/08/2012 [facility] Systolic (mm Hg) 123 02/08/2012 [facility] Diastolic (mm Hg) 82 02/08/2012 [facility] Diastolic (mm Hg) 77 02/08/2012 [facility] Systolic (mm Hg) 139 02/08/2012 [facility] Respitory Rate 18 02/08/2012 [facility] Heart Rate 91 02/08/2012 [facility] Temperature Oral (F) 98.3 F 02/08/2012 [facility] Systolic (mm Hg) 159 02/08/2012 [facility] Diastolic (mm Hg) 89 02/08/2012 [facility] Heart Rate 77 02/08/2012 [facility] Respitory Rate 18 02/08/2012 [facility] Temperature Oral (F) 98.1 F 02/08/2012 [facility] Weight 65.909 02/05/2012 [facility] Height 157.48 cm 02/05/2012 [facility] Encounters Location Location Details Encounter Type Encounter Number Reason For Visit Attending Provider ADM Date DC Date Status Source [facility] Inpatient [id number] PRE-ECAD GALICIA 02/05/2012 02/08/2012 Active [facility] Outpatient [id number] CADY ESPINOZA 12/26/2018 Active [facility] [id number] Cady Espinoza 12/26/2018 12/27/2018 [facility] Out[facility] [id number] CADY ESPINOZA 01/23/2019 Active [facility] [place] Pre[place] [id number] Cady Espinoza 01/23/2019 01/23/2019 [facility] Outpatient [id number] Cady Espinoza 01/30/2019 Active [facility] [id number] Cady Espinoza 01/30/2019 01/30/2019 [facility] Procedures No Data Provided for This Section Assessment and Plan No Data Provided for This Section Plan of Care No Data Provided for This Section Social History Social History Date Source Social History TypeResponse Substance Abuse Use: None. Sexual Sexually active: Yes. Exercise Exercise duration: 0. Employment/School Status: Employed. Alcohol Current, Type Wine. Frequency: 1-2 times per year. Smoking Status Never smoker; Exposure to Tobacco Smoke None; Cigarette Smoking Last 365 Days No; Reg Smoking Cessation Counseling No entered on: 12/26/18 12/26/2018 [facility] Family History No Data Provided for This Section Advance Directives No Data Provided for This Section Functional Status No Data Provided for This Section
--- OUTSIDE RECORDS SUMMARY | 2019-07-09 12:13 | XMS REPORT | Summary of Care ---
Author Author [facility] [facility] Unknown Phone Unavailable Encounter [place] Benítez(NBA) [id number] Date(s): 12/26/18 - 12/26/18 [facility] [address] [place] [address]- Discharge Disposition: Home or Self Care Attending Physician: Cady Wade MD Vital Signs Most recent to 1 oldest [Reference Range]: Height 157.48 cm (12/26/18 10:49 AM) Blood Pressure 125/85 mmHg [90-140/60-90 mmHg] (12/26/18 10:49 AM) Respiratory Rate 16 BRMIN [14-20 BRMIN] (12/26/18 10:49 AM) Peripheral Pulse 87 bpm Rate [60-100 bpm] (12/26/18 10:49 AM) Weight 56.364 kg (12/26/18 10:49 AM) Body Mass Index 22.73 m2 (12/26/18 10:49 AM) Problem List Condition Effective Dates Status Health Status Informant Chronic Active cough(Confirmed) Fatigue(Confirmed) Active History of Active asthma(Confirmed) Cervical Active cancer(Confirmed) Vaginal Active delivery(Confirmed) Allergies, Adverse Reactions, Alerts Substance Reaction Severity Status NKDA Active Medications montelukast 10 mg oral tablet 10 mg=1 tab, PO, Bedtime, # 30 tab, 1 Refill(s), Pharmacy: [facility] #[id number] Start Date: 12/26/18 Status: Ordered ProAir HFA 90 mcg/inh inhalation aerosol with adapter 2 puff, INHALER, Q4H, PRN wheezing, coughing, or shortness of breath, # 1 ea, 1 Refill(s), Pharmacy: [facility] #[id number], OKAY TO DISPENSE GENERIC ALBUTEROL OR A LTERNATIVE Start Date: 12/26/18 Status: Ordered Results No data available for this section Immunizations No data available for this section Procedures No data available for this section Social History Social History Type Response Substance Abuse Use: None. Sexual Sexually active: Yes. Exercise Exercise duration: 0. Employment/School Status: Employed. Alcohol Current, Type Wine. Frequency: 1-2 times per year. Smoking Status Never smoker; Exposure to Tobacco Smoke None; Cigarette Smoking Last 365 Days No; Reg Smoking Cessation Counseling No entered on: 12/26/18 Assessment and Plan No data available for this section
--- OUTSIDE RECORDS SUMMARY | 2019-07-09 12:13 | XMS REPORT | Summary of Care ---
Author Author [facility] [place] Organization [facility] [place] Address Unknown Phone Unavailable Encounter YK Benítez(NBA) [id number] Date(s): 01/23/19 - 01/23/19 [facility] [place] [address] [place] [address]- [phone] Attending Physician: Cady Wade MD Vital Signs No data available for this section Problem List Condition Effective Dates Status Health Status Informant Chronic Active cough(Confirmed) Fatigue(Confirmed) Active History of Active asthma(Confirmed) Cervical Active cancer(Confirmed) Vaginal Active delivery(Confirmed) Allergies, Adverse Reactions, Alerts Substance Reaction Severity Status NKDA Active Medications No data available for this section Results No data available for this section [...]
--- OUTSIDE RECORDS SUMMARY | 2019-07-09 12:13 | XMS REPORT | Summary of Care ---
Author Author [facility] [place] Organization [facility] [place] Address Unknown Phone Unavailable Encounter [place] Benítez(NBA) [id number] Date(s): 01/30/19 - 01/30/19 [facility] [place] [address] [place] [address]- [phone] Attending Physician: Cady Wade MD Vital Signs [...]
[2019-07-09 16:20] VITALS: BP 110/73
--- NOTE | 2019-07-09 22:16 | Operative Report ---
DATE OF PROCEDURE: 07/09/2019 SURGEON: Zeke Hickey MD PROCEDURE: EGD with biopsies. INDICATION FOR PROCEDURE: Acid reflux. MEDICATIONS: The patient was done under MAC, please see anesthesiologist's note. PROCEDURE IN DETAIL: With the patient in left lateral decubitus position, a flexible fiberoptic Olympus gastroscope was introduced into the esophagus under direct visualization without any difficulty. A minute nodule was noted in the proximal esophagus that was suspicious for squamous papilloma that was removed per the cold biopsy forceps. There was some patchy erythema noted in the distal esophagus. The scope was then advanced with ease into the stomach and mucosa overlying the antrum and the body revealed some diffuse erythema and low-grade edema and biopsies were obtained and sent to stain for H. pylori. There was a minute polyp noted in the proximal body of the stomach and that was removed per the cold biopsy forceps. There were some mild ? atrophic changes noted in the antrum and biopsies were obtained. The pylorus was of normal contour and shape. It was intubated with ease and the scope was advanced all the way to the second portion of the duodenum. Biopsies were obtained from the proximal second portion and the duodenal bulb to rule out sprue. The scope was then withdrawn back into the stomach and retroflexed and mucosa overlying the fundus and cardia appeared to be within normal limits. The scope was then straightened out, it was subsequently withdrawn. The patient tolerated the procedure well. IMPRESSION: 1. Minute nodule of cervical esophagus removed per the cold biopsy forceps. 2. Distal esophagitis. 3. Gastritis, biopsied; biopsies sent to stain for H. pylori. 4. Gastric polyp upper body, removed per the cold biopsy forceps. 5. Rule out sprue. PLAN: Follow up histology. Initiate Protonix 40 mg 1 p.o. q.a.m. a.c. Zeke Hickey MD [facility] [place] /[id number]
== END | disposition home or self-care (01) ==
LOC: OR 12:10
PROVIDERS: ATTEND Internal Medicine Gastroenterology
DX: K20.9 Esophagitis, unspecified (principal); K21.9 Gastro-esophageal reflux disease without esophagitis; K31.7 Polyp of stomach and duodenum; K29.70 Gastritis, unspecified, without bleeding; Z85.41 Personal history of malignant neoplasm of cervix uteri; J45.909 Unspecified asthma, uncomplicated; R05 Cough; F32.9 Major depressive disorder, single episode, unspecified; F41.9 Anxiety disorder, unspecified; R13.19 Other dysphagia; R11.0 Nausea
CPT/HCPCS: 43239; C9113; J2001; J2250; J2704; J3010